=== PATIENT | male | born 1990 ===

== ENCOUNTER 2023-06-02 17:25 | Emergency (ER) | payer BC ==
[2023-06-02] MEDS ORDERED: Famotidine 20 MG Tab PO ONE (17:45)
[2023-06-02] MEDS ORDERED: diphenhydrAMINE 50 MG Cap PO ONE (17:45)
[2023-06-02] MEDS ORDERED: predniSONE 20 MG Tab PO STA (17:45)
== END 2023-06-02 18:59 | disposition home or self-care (01) ==
LOC: MW.ED 17:25
DX: R20.0 Anesthesia of skin (principal); Z91.013 Allergy to seafood
CPT/HCPCS: 99283; A9270